=== PATIENT | male | born 1990 | race Caucasian/White ===

== ENCOUNTER 2018-08-17 20:22 | Emergency (ER) | payer OTHER ==
[~2018-08-17] VITALS: Ht 188 cm; Wt 81.2 kg
[~2018-08-17 20:22] MED LIST: CIPROFLOXACIN500 M1 PO; CLEOCIN HCL150 MG PO; HYDROCODON-ACE1 EAC7; IBUPROFEN 600600 M1 PO; NAPROSYN500 MG PO; NOHOMEMEDICATIONS; NORCO 5-325 TA1 EACH PO; PERCOCET 5-3251 EACH PO; ULTRAM 50MG TAB50 MG PO
[2018-08-17 22:30] VITALS: BP 132/68
== END 2018-08-17 22:24 | disposition home or self-care (01) ==
LOC: ER 20:22
DX: S61.511A Laceration without foreign body of right wrist, initial encounter (principal); F17.210 Nicotine dependence, cigarettes, uncomplicated; W26.8XXA Contact with other sharp object(s), not elsewhere classified, initial encounter; Y93.89 Activity, other specified; Y92.89 Other specified places as the place of occurrence of the external cause; Y99.8 Other external cause status

== ENCOUNTER 2020-11-21 17:53 | Emergency (ER) | payer OTHER | END 2020-11-21 18:02 | disposition left against medical advice (07) | LOC: ER 17:53 | DX: M79.672 Pain in left foot (principal); Z53.21 Procedure and treatment not carried out due to patient leaving prior to being seen by health care provider ==